=== PATIENT | female | born 1990 | race Caucasian/White ===

== ENCOUNTER 2022-06-30 00:41 | Day surgery (SDC) | payer BC, SELFPAY ==
[2022-06-19 10:33] VITALS: BMI 25.0
--- NOTE | 2022-06-19 10:36 | PC.NURSE ---
Report to the Outpatient Waiting Room, entrance under the green pavilion located off [facility], at time 10:45 on date 06/30/22. Planned Procedure Time: 12:45. Time changes happen often and if your time is changed the preop area will call you the afternoon before. - You and your visitor will be asked to self-screen and do not enter if you have any COVID symptoms. - Only one visitor is requested with a max of two and NO children visitors are allowed at this time. - The patient visitor may be requested to leave or wait in car when not with patient due to distancing restrictions. - A mask is optional within the hospital at this time. Patients may have clear liquids (water, carbonated beverages, clear teas, apple juice) until 3 hours prior to surgery with a maximum of 20 ounces. - No food from midnight until time of surgery Take the following medications with a SIP of water the morning of surgery: NONE DO NOT STOP ANY OF YOUR OTHER PRESCRIPTION MEDICATIONS PRIOR TO SURGERY EXCEPT THE FOLLOWING Medications to discontinue per physician: N/A Date to take last dose: N/A Please no make-up, nail australian, hairspray, perfume, deodorant, or body powder the day of surgery. No jewelry (including any body piercings) or valuables the day of surgery, leave them at home. Please take a shower or bath the night before, or the morning of, surgery with an antibacterial soap. Wear comfortable, loose fitting clothing. - Jewelry must be removed prior to entering the operating room. Rings and piercings that are not removed may be cut off. - The hospital will not accept responsibility for valuables. - Please leave all valuables, including medications, at home the day of surgery. If you are going home after surgery, a licensed school bus driver must drive you home. - NO public transportation without another adult if you receive anesthesia. - We recommend that an adult stay with you for 24 hours following discharge. - We also recommend that you do not drive, make important decision, drink alcoholic beverages, or take any drugs that were not prescribed by your health care provider for at least 24 hours after your discharge time. Follow any additional instructions given to you from your surgeon. If you or anyone in your household have experienced Covid symptoms in the past week, please notify your surgeon or the nurse liaison at the phone number below for possible testing. Telephone instructions given to PT - JOE VERA and asked if any additional questions and then verbalized understanding. Patient advised to call surgeon office or pre surgery nurse liaison [phone] if any additional questions.
[2022-06-30] VITALS (7 sets, daily range): BP systolic 97–107; BP diastolic 62–72; PULSE 46–69; RESP 15–16; TEMP 36.1–36.3; O2SAT 100
--- NOTE | 2022-06-30 10:06 | P.PNAN_ITS ---
Anes - Initial Pre Proc Eval Procedure: Operation Date: 06/30/22 12:45 Proposed Procedures p Hysteroscopy, Dilation and Curettage,Marichuy Endometrial Ablation,Laparoscopic Bilateral Salpingectomy - Bora Nielson MD Date/Time: 06/30/22 10:06 Surgeon: Bora Nielson MD Pre Op Diagnosis: abnormal uterine bleeding desired steriliztion Patient Data Age: 32 Gender: F Height: 1.65 m Weight: 68.1 kg Allergies Allergy/AdvReac Type Severity Reaction Status Date / Time Penicillins Allergy Mild RASH Verified 06/30/22 11:12 Home Medications Medication Instructions Recorded Confirmed Type linaclotide 72 mcg capsule 72 mcg PO DAILY 06/19/22 06/30/22 History (Linzess) Patient hx anesthesia problems: none Family hx anesthesia problems: none Results Review: All pre-operative results and documents have been reviewed as part of the pre- operative evaluation. [facility] Past Medical History Medical History (Updated 06/30/22 @ 10:06 by Arron Stratton DO) Chlamydia infection (~2010) IBS (irritable bowel syndrome) Urinary retention Vaginal delivery 12/28/14 no complications Analena 10/23/18 no complications Ezralynn Family History Family History Grandparent Diabetes mellitus maternal grandmother Hypertension maternal grandmother Social History Social History (Updated 06/07/22 @ 10:20 by ALAINA Ballard) Smoking status: Never smoker Alcohol intake: never Substance use: never Substance use type: does not use Living arrangements: with family Additional living arrangements comments: Occupation/Education: occupation 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 Gender identity (if verbalized by the patient): Female Sexual Orientation (if Verbalized by the Patient): Straight or Heterosexual Spiritual care concerns: No Anes - Eval Final PreProcedure Day of Procedure 06/30/22 10:06 Patient weight: normal Heart: regular rate and rhythm Lungs: clear to auscultation and normal air movement Airway: Mallampati scale class II Neurological: alert and oriented Last oral intake: >/= 8 hours ASA classification: II Emergent: no Anesthetic plan: proceed Anesthesia type and monitoring: general ETT and standard monitoring Results Review: All pre-operative results and documents have been reviewed as part of the pre- operative evaluation. Informed Consent: The patient's anesthetic plan and its attendant risks and benefits were discussed with the patient/family/POA. Questions were solicited and answers provided to the satisfaction of the patient/family/POA.
--- NOTE | 2022-06-30 11:08 | WPDHPUPDATE1 ---
History and Physical Update Update Date/Time: 06/30/22 11:08 Assessment: 1. Menometrorrhagia 2. Dysmenorrhea 3. Undesired fertility Plan: 1. Hysteroscopy with uterine curettings 2. Endometrial ablation 3. Laparoscopic bilateral salpingectomy History and Physical has been reviewed, including an updated exam of the patient. There are NO changes in the patient's condition. Risks, benefits, and alternatives have been discussed and questions answered. Patient agrees to proceed with procedure.
[2022-06-30] MEDS: ACETAMINOPHEN 500 MG TABLET 1000 MG PO (11:15)
[2022-06-30] MEDS: LACTATED RINGERS 1,000 ML 30 ML IV CONT (11:27)
[2022-06-30] MEDS: KETOROLAC 15 MG/ML VIAL (*BKC) IV PUSH (11:28)
[2022-06-30] MEDS: ceFAZolin 2 GM/D5W 50 ML 2 GM/50 ML BAG IVPB (13:07)
--- NOTE | 2022-06-30 14:01 | W.PM.PROC2 ---
Procedure Note - Detailed Date of Procedure 06/30/22 Pre-op Diagnosis 1. Menometrorrhagia 2. Dysmenorrhea 3. Undesired fertility Post-op Diagnosis Same Procedure Performed 1. Hysteroscopy with uterine curettings 2. Endometrial ablation 3. Laparoscopic bilateral salpingectomy Surgeon Bora Nielson MD Anesthesia General Findings 1. Slightly thickened endometrial cavity on hysteroscopic exam 2. No abnormalities noted on laparoscopic evaluation, tubes and ovaries without abnormality. Description of Procedure Patient prepped draped usual manner for this procedure. Cervical instruments placed for uterine mobility throughout the case. Abdominal trocar sites were marked and placed under direct visualization. Instruments were placed and using the Harmonic scalpel mesial salpinx was cauterized and cut bilaterally and the tubes removed without difficulty. There is no bleeding gas was allowed to escape incisions were approximated using 4-0 Monocryl. Cervix was then dilated to allow the hysteroscope to be placed which revealed slightly thickened tissue, endometrial curettings were performed of all 4 quadrants, and the endometrial ablation instrument was placed. Cavity assessment was performed instrument activated. At the end of the procedure destruction was noted throughout. Patient was then sent to the recovery room in stable condition. Estimated Blood Loss 10 Drains No Packing No Pathology Yes Complications No immediate complications Condition Stable Disposition PACU [facility] Billing Surgery - Charge Forward: Surgery Billing
[2022-06-30] MEDS: fentaNYL CITRATE INJ (*CRX) 100 MCG/2 ML VIAL 25 MCG IV PUSH ×2 (14:36→14:43)
== END 2022-06-30 15:50 | disposition home or self-care (01) ==
PROVIDERS: Visit Provider Obstetrics & Gynecology
PROC: 0UDB8ZZ Extraction of Endometrium, Via Natural or Artificial Opening Endoscopic (ICD-10-PCS; CPT 58558; principal; 2022-06-30 12:45)
DX: N92.1 Excessive and frequent menstruation with irregular cycle (principal); N94.6 Dysmenorrhea, unspecified; Z30.2 Encounter for sterilization; K58.9 Irritable bowel syndrome, unspecified
CPT/HCPCS: 58661; 58563; 88302; 88305; A9270; J0690; J1100; J1885; J2250; J2405; J2704; J2710; J3010; J7120